=== PATIENT | female | born 1995 | race Caucasian/White ===

== ENCOUNTER 2022-07-28 19:45 | Outpatient (REF) | payer MEDICAID, SELFPAY ==
[2022-08-03 13:07] LABS: Age Gdln ACOG Testing Note (.); IGP, rfx Aptima HPV ASCU Note (.)
== END 2022-07-28 19:46 ==
LOC: LAB 19:45
PROVIDERS: PCP Physician Assistant; Visit Provider Physician Assistant
DX: Z12.4 Encounter for screening for malignant neoplasm of cervix (principal)
CPT/HCPCS: G0145

== ENCOUNTER 2022-09-17 08:54 | Outpatient (OUT) | payer MEDICAID, SELFPAY ==
--- NOTE | 2022-09-17 09:49 | XR_ITS ---
[address] [address] Patient Name: PEGGY DOBSON MRN: [id number] date: 1995 Sex: F Assigned Patient Location: [facility] Current Patient Location: [facility] Accession/Order Number: [id number] Exam Date: 09/17/2022 10:00 Report Date: 09/17/2022 10:41 At the request of: KIERA JIMÉNEZ Procedure: XR chest 2V EXAM: XR chest 2V HISTORY: pre op exam COMPARISON: None. TECHNIQUE: PA and lateral views of the chest. FINDINGS: The cardiomediastinal silhouette is normal. No focal consolidation is identified. There is no pneumothorax. No pleural effusion is noted. The osseous structures are intact. XR/XR chest 2V IMPRESSION: No acute cardiopulmonary process. Electronically authenticated by: MARCOS CRABTREE Date: 09/17/2022 10:41
== END 2022-09-17 08:55 | disposition home or self-care (01) ==
LOC: PST 08:54
PROVIDERS: Visit Provider Obstetrics & Gynecology
DX: Z01.818 Encounter for other preprocedural examination (principal); Z01.812 Encounter for preprocedural laboratory examination; Z30.2 Encounter for sterilization
CPT/HCPCS: 71046

== ENCOUNTER 2022-10-02 09:44 | Day surgery (SDC) | payer MEDICAID, SELFPAY ==
[2022-09-17 09:28] VITALS: BMI 26.0
[2022-09-17 10:15] VITALS: BP 114/75; PULSE 65; RESP 16; TEMP 36.6; O2SAT 98
[2022-10-02] VITALS (11 sets, daily range): BP systolic 98–123; BP diastolic 61–74; PULSE 63–96; RESP 12–20; TEMP 36.2–36.9; O2SAT 96–100; BMI 26.1
[2022-10-02 09:57] LABS: Basophils Absolute Auto 0.1 10^3/uL (0.0-0.1); Basophils Percent Auto 1.2 % (0.2-2.0); Eosinophils Absolute Auto 0.1 10^3/uL (0.0-0.7); Eosinophils Percent Auto 2.8 % (0.9-7.0); Hematocrit 40.3 % (36.0-48.0); Hemoglobin 14.1 g/dL (12.0-16.0); Immature Granulocytes Abs Auto 0.01 10^3/uL (0.00-0.03); Immature Granulocytes Pct Auto 0.2 % (0.0-0.5); Lymphocytes Absolute Auto 1.4 10^3/uL (1.2-3.8); Lymphocytes Percent Auto 27.4 % (20.5-60.0); Mean Corpuscular Hemoglobin 29.9 pg (26.7-34.0); Mean Corpuscular Volume 85.6 fL (81.0-99.0); Mean Platelet Volume 9.8 fL (9.5-13.5); Monocytes Absolute Auto 0.4 10^3/uL (0.3-0.8); Monocytes Percent Auto 8.7 % (1.7-12.0); Neutrophils Absolute Auto 2.9 10^3/uL (1.4-6.5); Neutrophils Percent Auto 59.7 % (43.0-75.0); Platelet Count 292 10^3/uL (150-450); Red Blood Count 4.71 10^6/uL (4.20-5.40); Red Cell Distribution Width 11.9 % (11.0-15.0); White Blood Count 4.9 10^3/uL (4.0-11.0)
[2022-10-02] MEDS: LACTATED RINGER'S SOLUTION 1,000 ML 50 ML IV (10:11)
[2022-10-02 10:19] LABS: HCG Quantitative <1 mIU/mL
[2022-10-02] MEDS: SCOPOLAMINE 1 EACH PATCH.TD.3 1 PATCH TD (10:28)
--- NOTE | 2022-10-02 12:29 | P.ON_ITS ---
Brief Operative Note Date of procedure: 10/02/22 Pre-op diagnosis: desires permanent sterilization, multiparity Post-op diagnosis: same as pre-op Procedure: NAME OF PROCEDURE: bilateral laparoscopic salpingectomy robotic assisted PROCEDURE: The patient was taken back to the Operating Room where she was given general anesthesia without difficulty. She was then prepped and draped in the normal sterile fashion after being placed in a dorsal lithotomy position. A wet sponge stick was placed into the patient's vagina. Attention was then turned to the patient's abdomen, where a scalpel was used to make a small infraumbilical incis ion. The S retractors were then used to dissect the underlying layers until the fascia could be seen. The fascia was then grasped with Michael clamps and tented up. A knife was then used to make a small incision to the fascia. The muscle was identified, at that time two sutures of #0 Vicryl on a GI needle was then used and placed through the fascia. the peritoneum was then identified and entered b luntly. The 10-4 Juliann was then placed into the patient's abdomen. This was confirmed with direct visualization of the bowel, using the laparoscope. The patient's abdomen was then insufflated using approximately 4 liters of CO2 gas. Survey of the patient's abdomen demonstrated ovaries were normal in appearance as well as both tubes and uterus. A second and third rt and lt lateral robotic ports which were 8 mm in size, was then placed after the skin incision was made under direct visualization . The robotic arms were engaged. The patient's tube on the patient's right side was identified and tented up using a grasper, the vessel sealer apparatus was then used to come across the mesosalpingx from the fimbriated end to the insertion site at the uterus, the tube was then amputated and removed in its entirety. This was done on the contralateral side. The tubes were the removed from the patients abdomen. Excellent hemostasis was noted. The lateral ports were then moved under direct visualization with excellent hemostasis. All instruments were removed from the patient's abdomen. The fascia was closed using the #0 Vicryl on GI needle. The skin was closed using 4-0 Vicryl subcuticularly. All instruments were removed from the patient's vagina as well. The patient was taken out of the dorsal lithotomy position and placed in the supine position and taken to recovery in stable condition. Sponge, lap and needle counts were correct x2. Anesthesia: ENRIQUETA Surgeon: Colton Flowers Kiln Mechanic: Lorene Rodrigues Estimated blood loss (mL): 5 Pathology: other (tubes) Condition: stable Disposition: PACU
[2022-10-02] MEDS: HYDROCODONE/ACETAMINOPHEN 5-325 MG TABLET 1 TAB PO (12:58)
== END 2022-10-02 14:05 | disposition home or self-care (01) ==
PROVIDERS: Visit Provider Obstetrics & Gynecology
PROC: (CPT 840; principal; 2022-10-02 11:15)
DX: Z30.2 Encounter for sterilization (principal); N83.8 Other noninflammatory disorders of ovary, fallopian tube and broad ligament; J45.909 Unspecified asthma, uncomplicated; Z87.891 Personal history of nicotine dependence; Z90.49 Acquired absence of other specified parts of digestive tract
CPT/HCPCS: 58661; 36415; 84702; 85025; 88302; J2704